=== PATIENT | female | born 2000 | race Hispanic/Latino ===

== ENCOUNTER → 2024-09-27 18:03 | Outpatient (REF) | payer OTHER, SELFPAY | LOC: CLINIC 18:03 | PROVIDERS: ATTENDING PHYSICIAN Nurse Practitioner Family | DX: Z12.4 Encounter for screening for malignant neoplasm of cervix (principal) | CPT/HCPCS: 87491; 87591; G0123 ==

== ENCOUNTER → 2024-10-02 13:55 | Outpatient (REF) | payer OTHER, SELFPAY ==
[2024-10-02 16:14] LABS: % Basophils 0.5 % (0-2); % Eosinophils 2.9 % (0-6); % Immature Granulocytes 0.4 % (0-0.5); % Lymphocytes 28.3 % (20.5-51.1); % Monocytes 4.8 % (1.7-9.3); % Neutrophils 63.1 % (42.2-75.2); Absolute Eosinophils 0.2 10^3/uL (0-0.7); Absolute Lymphocytes 2.2 10^3/uL (1.2-3.4); Absolute Monocytes 0.4 10^3/uL (0.1-0.6); Absolute Neutrophils 4.8 10^3/uL (1.4-6.5); Hematocrit 43.5 % (37.0-47.0); Hemoglobin 14.9 g/dL (12.0-16.0); Mean Corp Hgb Conc. 34.3 g/dL (33.0-37.0); Mean Corpuscular Hgb 30.4 pg (27.0-31.0); Mean Corpuscular Volume 88.8 fL (81.0-99.0); Mean Platelet Volume 9.9 fL (7.4-10.4); Nucleated Red Blood Cells % 0 %; Platelet Count 272 10^3/uL (130-400); Red Cell Dist. Width 11.6 % (11.5-14.5); White Blood Cell Count 7.6 10^3/uL (4.8-10.8)
[2024-10-02 16:44] LABS: ALT (SGPT) 47 U/L (0-35); AST (SGOT) 34 U/L (14-36); Albumin 4.5 g/dl (3.5-5.0); Alkaline Phosphatase 86 U/L (38-126); Blood Urea Nitrogen 17 mg/dl (7-17); Calcium 9.2 mg/dl (8.4-10.2); Carbon Dioxide 27 mmol/L (22-30); Chloride 101 mmol/L (98-107); Glucose 86 mg/dl (70-99); Potassium 3.9 mmol/L (3.5-5.1); Sodium 138 mmol/L (135-145); Total Bilirubin 0.4 mg/dl (0.2-1.3); Total Protein 7.5 g/dl (6.3-8.2); eGFR > 60.00
[2024-10-02 17:08] LABS: TSH Reflex To Free T4 1.14 uIU/ml (0.47-4.68)
== END ==
LOC: CLINIC 13:55
PROVIDERS: ATTENDING PHYSICIAN Nurse Practitioner Family
DX: Z00.00 Encounter for general adult medical examination without abnormal findings (principal)
CPT/HCPCS: 36415; 80053; 84443; 85025

== ENCOUNTER → 2024-11-20 10:27 | Outpatient (REF) | payer OTHER, SELFPAY ==
[2024-11-20 11:49] LABS: Urine Albumin 2+ (Neg - Trace); Urine Bilirubin Negative (Negative); Urine Character Clear (Clear); Urine Color Yellow; Urine Glucose Negative (Negative); Urine Ketone Negative (Negative); Urine Leukocyte 1+ (Negative); Urine Nitrite Negative (Negative); Urine Occult Blood 4+ (Negative); Urine Urobilinogen 1+ (Neg - 1+)
[2024-11-20 12:57] LABS: Urine Squamous Cell 21-25 /LPF (Few)
[2024-11-20 12:58] LABS: Urine Bacteria Many (Negative); Urine Red Blood Cell 0-2 /HPF (0-2)
[2024-11-20 18:51] LABS: Hepatitis B Surface Antigen Negative (Negative)
[2024-11-20 19:08] LABS: Hepatitis B Surface Antibody Positive; Hepatitis C Antibody Negative (Negative)
[2024-11-21 11:54] LABS: Syphilis/T. pallidum Ab Reflex Negative (Negative)
[2024-11-21 14:51] LABS: HIV Combo Negative (Negative)
== END ==
LOC: CLINIC 10:27
PROVIDERS: ATTENDING PHYSICIAN Nurse Practitioner Adult Health
DX: Z11.3 Encounter for screening for infections with a predominantly sexual mode of transmission (principal); R10.31 Right lower quadrant pain
CPT/HCPCS: 36415; 81003; 81015; 86706; 86780; 86803; 87086; 87340; 87389

== ENCOUNTER → 2024-11-22 15:09 | Outpatient (REF) | payer OTHER, SELFPAY | LOC: CLINIC 15:09 | PROVIDERS: ATTENDING PHYSICIAN Obstetrics & Gynecology Gynecology | DX: A74.9 Chlamydial infection, unspecified (principal) | CPT/HCPCS: 87491; 87591 ==

== ENCOUNTER → 2025-06-27 16:37 | Outpatient (REF) | payer OTHER, SELFPAY ==
[2025-06-30 09:59] LABS: Chlamydia trachomatis,ThinPrep Negative (Negative); Neisseria gonorrhoeae,ThinPrep Negative (Negative); Specimen Source Cervical
== END ==
LOC: CLINIC 16:37
PROVIDERS: ATTENDING PHYSICIAN Nurse Practitioner Adult Health
DX: N89.8 Other specified noninflammatory disorders of vagina (principal); Z86.19 Personal history of other infectious and parasitic diseases
CPT/HCPCS: 87491; 87591; G0123

== ENCOUNTER → 2025-07-17 09:40 | Outpatient (REF) | payer OTHER, SELFPAY ==
[2025-07-17 10:36] LABS: Hematocrit 22.9 % (37.0-47.0); Hemoglobin 6.1 g/dL (12.0-16.0); Mean Corp Hgb Conc. 26.6 g/dL (33.0-37.0); Mean Corpuscular Volume 69.0 fL (81.0-99.0); Platelet Count 388 10^3/uL (130-400); Red Cell Dist. Width 17.6 % (11.5-14.5)
[2025-07-17 10:52] LABS: ALT (SGPT) 20 U/L (0-35); AST (SGOT) 27 U/L (14-36); Albumin 4.6 g/dl (3.5-5.0); Alkaline Phosphatase 64 U/L (38-126); Blood Urea Nitrogen 10 mg/dl (7-17); Calcium 9.0 mg/dl (8.4-10.2); Carbon Dioxide 29 mmol/L (22-30); Chloride 103 mmol/L (98-107); Glucose 104 mg/dl (70-99); Potassium 3.9 mmol/L (3.5-5.1); Sodium 138 mmol/L (135-145); Total Protein 7.8 g/dl (6.3-8.2); eGFR > 60.00
[2025-07-17 11:37] LABS: Vitamin B12 721 pg/ml (239-931)
== END ==
LOC: CLINIC 09:40
PROVIDERS: ATTENDING PHYSICIAN Nurse Practitioner Adult Health
DX: D50.0 Iron deficiency anemia secondary to blood loss (chronic) (principal)
CPT/HCPCS: 36415; 80053; 82607; 85027

== ENCOUNTER 2025-07-17 13:15 | Emergency (ER) | payer SELFPAY ==
[2025-07-17] VITALS (16 sets, daily range): BP systolic 96–119; BP diastolic 57–79
[2025-07-17 14:28] LABS: Beta HCG Quantitative < 2.39 mIU/ml
--- NOTE | 2025-07-17 17:14 | ED.GENMED ---
History of Present Illness
General
Chief Complaint: Abnormal Lab Value
Source: patient and family
Time Seen by Provider: 07/17/25 16:47
History of Present Illness
History of Present Illness:
This patient is a 25-year-old female presents emergency department as directed by her doctor given that she is anemic. She states she had an IUD removed in November and did have bleeding until approximately 4 months ago when she has daily persistent
vaginal bleeding sometimes with clots. She is symptomatic with this described as intermittent dyspnea, headaches, and fatigue. She denies fever, chills, abdominal or pelvic pain, back pain, urinary symptoms, chest pain. Patient denies bleeding
elsewhere. She has not been prescribed any medications since this bleeding began.
Past History
Past History
ED Past Medical History: None
ED Past Surgical History: None
Social History
Tobacco: Non-smoker
Alcohol: None
Drug: None
Personal:
Living: with family
Phy Exam
Physical Exam
Physical Exam:
GENERAL: Alert , in no apparent distress
EYE: pupils equal and reactive
NECK: Supple, no significant adenopathy.
ENT: o/p clr, mmm.
CARDIAC: Regular rate and rhythm .
LUNGS: Clear breath sounds bilaterally, no acute respiratory distress, no wheezes/rales/rhonchi
ABDOMEN: Soft, without focal tenderness, no r/g, no cvat
NEUROLOGICAL: Alert and oriented, no focal neuro deficits
SKIN: Warm and dry, skin intact.
MUSCULOSKELETAL: No edema, well perfused.
PSYCH: Normal and appropriate interaction.
: mod blodo in vag vault, no clots
Course
Orders/Labs/Results
Orders:
Orders
07/17/25 13:26
US Pelvis [US Pelvis Only (non-obstetric)] Urgent
Comment:
Reason For Exam: bleeding x4 months
07/17/25 13:33
Type+Screen Urgent
Beta HCG Quantitative Urgent
Is this a screen?: No
07/17/25 16:48
* Blood Bank Products Routine
Blood Bank Products: *Packed RBC Leuko (PRBC's
Quantity: 2
Transfuse Today: Yes
Reason: Bleeding
IV Insert/Care/Rem.- Treatment PRN
07/17/25 20:41
Tranexamic Acid [Cyklokapron] 650 mg PO NOW STA
Abnormal Lab Results
07/17/25
13:33
Crossmatch IS Only See Detail
Vital Signs
Initial and Last Documented VS:
Initial Vital Signs
Temp Pulse Resp BP Pulse Ox
99.1 F 95 18 104/62 100
07/17/25 13:19 07/17/25 13:19 07/17/25 13:19 07/17/25 13:19 07/17/25 13:19
Last Documented Vital Signs
Temp Pulse Resp BP Pulse Ox
98.7 F 73 18 104/62 100
07/17/25 22:35 07/17/25 22:35 07/17/25 22:35 07/17/25 22:35 07/17/25 22:35
*Pulse Oximetry
SaO2: 99
Oxygen Mode of Delivery: Room air
Update Note
Update Note:
Patient presents to the Emergency Department with ___vaginal bleeding
Number and Complexity of Problems Addressed at the Encounter
� Chronic conditions affecting care:
� Acute Exacerbation and/or Progression of Chronic Illness:
� Differential Diagnosis includes: Fibroid, ectopic , with bleeding, uterine mass, dysfunctional uterine bleeding etc. etc.
Amount and/or Complexity of Data to be Reviewed and Analyzed
� I performed an independent evaluation of and my interpretation is:
EKG:
CT:
Xrays:
Laboratory Studies: Hemoglobin markedly low at 6.1
Other: Vaginal ultrasound generally unremarkable endometrial stripe 7 mm, normal ovaries, no free fluid, no uterine mass
� Review of other/old records reveals:
� Clinical information was obtained by an independent historian: assisted with history
� Prescriptions/Medications Considered but not given:
� Further testing considered but not performed:
Risk of Complications and/or Morbidity or Mortality of Patient Management
� Social determinants of health affecting care:
� Discussion with other providers (PCP, Hospitalists, Consultants, etc):
� Escalation of care including admission/observation vs risk of discharge considered: History obtained using language line as patient is predominantly [place]ish-speaking
Patient getting transfusion at this time. Once complete, she will be stable for discharge to follow-up with Dr. Amor from [facility]. Case was discussed with her, aware of hemoglobin, vitals, etc. She recommends the patient be given TXA, 650 mg twice
daily x 5 days which I initiated here and called in a prescription for. She will see the patient at 7:15 AM on in the [address] office. Through the tailor fitter, this information will be communicated to the patient including the
importance of bring a programming director with her. Patient is stable comfortable without increasing bleeding at this time.
ED Attending Note
-
Portions of this chart may have been created with voice recognition software.� Occasional wrong word or��sound alike� substitutions may have occurred due to the inherent limitations of voice recognition software.
Discharge Plan
Departure
Patient Disposition: Home (Routine Discharge)
Date of Disposition: 07/17/25
Time of Disposition: 22:43
Patient with high blood pressure during this ER visit?: No
Condition: Good
Discharge Problem:
Anemia, Vaginal bleeding
Instructions: Heavy periods, Anemia in adults, possibly from low iron - ED (DC)
Prescriptions:
New
tranexamic acid 650 mg tablet
650 mg PO BID Qty: 10 0RF
Referrals:
Pedro Pablo Garcia MD [Family Provider]
Karo Amor MD [Active, Gynecology] - 07/19/25 7:15 am
Activity Restrictions/Additional Instructions:
PLEASE TAKE THE MEDICATION PRESCRIBED. WHEN YOU SEE DR AMOR ON WEDNESDAY AT 7:15AM, PLEASE BRING A CHIEF PSYCHOLOGY WITH YOU. THE OFFICE IS ON [address] [place] [address], [address], AND PHONE IS [phone]. SOMEONE FROM DR AMOR'S OFFICE WILL CONTACT YOU
TOMORROW. IF YOU DEVELOP CHEST PAIN, TROUBLE BREATHING, DIZZINESS, INCREASING BLEEDING, OR OTHER WORRISOME SIGNS, GO TO THE ER IMMEDIATELY!
Interventions
Interventions:
*Risk Screen - Suicide Last Done: 07/17/25 13:17
*General Assessment Last Done: 07/17/25 13:21
*Neglect/Abuse Screening Last Done: 07/17/25 13:21
*ED COVID-19 Vaccine History Last Done: 07/17/25 13:21
*ED Influenza Vaccine History Last Done: 07/17/25 13:21
[facility] Risk Assessment Tool Last Done: 07/17/25 13:15
Discharge Date and Time
Print Language: GREENLAND[place]
[2025-07-17] MEDS: CYKLOKAPRON 650 MG PO (21:58)
[2025-07-18] VITALS: BP 119/75
[2025-07-18 00:09] VITALS: BP 119/75
[2025-07-18 00:14] VITALS: BP 119/75
== END 2025-07-18 00:16 | disposition home or self-care (01) ==
LOC: EMR 13:15
PROVIDERS: Emergency Medicine; EMERGENCY PHYSICIAN Emergency Medicine; FAMILY PHYSICIAN Family Medicine
DX: D64.9 Anemia, unspecified (principal); N93.9 Abnormal uterine and vaginal bleeding, unspecified
CPT/HCPCS: 99284; 76856; 84702; 86850; 86900; 86901; 86920; P9016

== ENCOUNTER → 2025-07-19 07:14 | Outpatient (REF) | payer OTHER, SELFPAY | LOC: CLINIC 07:14 | PROVIDERS: ATTENDING PHYSICIAN Obstetrics & Gynecology Gynecology | DX: Z20.2 Contact with and (suspected) exposure to infections with a predominantly sexual mode of transmission (principal) | CPT/HCPCS: 87491; 87591 ==

== ENCOUNTER → 2025-07-19 08:30 | Outpatient (REF) | payer OTHER, SELFPAY ==
[2025-07-19 09:34] LABS: Hematocrit 31.0 % (37.0-47.0); Hemoglobin 8.8 g/dL (12.0-16.0); Mean Corp Hgb Conc. 28.4 g/dL (33.0-37.0); Mean Corpuscular Volume 72.1 fL (81.0-99.0); Nucleated Red Blood Cells % 0.4 %; Platelet Count 373 10^3/uL (130-400); Red Cell Dist. Width 20.0 % (11.5-14.5)
== END ==
LOC: CLINIC 08:30
PROVIDERS: ATTENDING PHYSICIAN Obstetrics & Gynecology Gynecology
DX: D64.9 Anemia, unspecified (principal)
CPT/HCPCS: 36415; 85025; 87491; 87591

== ENCOUNTER → 2025-07-27 15:12 | Outpatient (REF) | payer OTHER, SELFPAY ==
[2025-07-27 15:30] LABS: Hematocrit 28.8 % (37.0-47.0); Hemoglobin 8.6 g/dL (12.0-16.0); Mean Corp Hgb Conc. 29.9 g/dL (33.0-37.0); Mean Corpuscular Volume 69.7 fL (81.0-99.0); Nucleated Red Blood Cells % 0 %; Platelet Count 373 10^3/uL (130-400); Red Cell Dist. Width 21.1 % (11.5-14.5)
== END ==
LOC: CLINIC 15:12
PROVIDERS: ATTENDING PHYSICIAN Obstetrics & Gynecology Gynecology; FAMILY PHYSICIAN Nurse Practitioner Adult Health
DX: D64.9 Anemia, unspecified (principal)
CPT/HCPCS: 36415; 85025

== ENCOUNTER → 2025-08-03 13:09 | Outpatient (REF) | payer OTHER, SELFPAY ==
[2025-08-03 14:18] LABS: Hematocrit 30.7 % (37.0-47.0); Hemoglobin 9.1 g/dL (12.0-16.0); Mean Corp Hgb Conc. 29.6 g/dL (33.0-37.0); Mean Corpuscular Volume 69.1 fL (81.0-99.0); Nucleated Red Blood Cells % 0 %; Platelet Count 447 10^3/uL (130-400); Red Cell Dist. Width 22.0 % (11.5-14.5)
== END ==
LOC: CLINIC 13:09
PROVIDERS: ATTENDING PHYSICIAN Obstetrics & Gynecology Gynecology; OTHER PHYSICIAN Nurse Practitioner Adult Health
DX: D64.9 Anemia, unspecified (principal)
CPT/HCPCS: 36415; 85025